=== PATIENT | female | born 2005 | race Two or more races ===

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

== ENCOUNTER 2024-07-11 20:12 | Emergency (ER) | payer OTHER ==
[~2024-07-11] VITALS: Ht 157.5 cm; Wt 77.1 kg
[~2024-07-11 20:12] MED LIST: PRENA1 TRUE CO1 EACH
[2024-07-11] MEDS ORDERED: ACETAMINOPHEN 500 MG GEL..CAP PO ONE (22:30)
[2024-07-11 22:39] LABS: HEMATOCRIT 32.7 % (36.0-45.00); HEMOGLOBIN 10.8 g/dL (12.0-15.00); MEAN CELL VOLUME 86.7 fL (80.00-100.00); MEAN CORPUSCULAR HEMOGLOBIN 28.5 pg (27.00-32.0); MEAN CORPUSCULAR HGB CONC 32.9 g/dl (32.0-36.0); PLATELET COUNT 263 K/uL (150-450); RED BLOOD COUNT 3.77 M/uL (4.00-6.00); RED CELL DISTRIBUTION WIDTH 21.7 % (11.5-14.5)
[2024-07-12] MEDS ORDERED: ACETAMINOPHEN500 M1 PO (01:41)
== END 2024-07-12 03:11 | disposition home or self-care (01) ==
LOC: ER 20:13
PROVIDERS: Preventive Medicine Public Health & General Preventive Medicine
DX: R51.9 Headache, unspecified (principal); Z3A.37 37 weeks gestation of pregnancy

== ENCOUNTER 2024-07-26 06:41 | Inpatient (IN) | payer OTHER ==
[~2024-07-26] VITALS: Ht 157.5 cm; Wt 77.1 kg
[~2024-07-26 06:41] MED LIST changes: +ACETAMINOPHEN500 M1 PO; +IRON18 M1 PO
[2024-07-26 07:36] VITALS: BP 127/753
[2024-07-26] MEDS ORDERED: RINGERS SOLUTION,LACTATED 1,000 ML IV SCH (07:45)
[2024-07-26 07:49] LABS: URINE APPEARANCE Turbid; URINE BILIRRUBIN Negative (NEGATIVE); URINE BLOOD Trace; URINE COLOR Dark Yellow; URINE GLUCOSE Negative (NEGATIVE); URINE KETONE Negative (NEGATIVE); URINE LEUKOCYTE Moderate; URINE NITRATE Negative; URINE PROTEIN 30 (NEGATIVE)
[2024-07-26 07:50] LABS: URINE WBC 2623.2 uL (0.0-23.2)
[2024-07-26 08:17] LABS: INR < 0.93; PARTIAL THROMBOPLASTIN TIME 26.2 SECONDS (22.0-34.0); PROTHROMBIN TIME 9.8 SECONDS (9.0-11.5)
[2024-07-26 08:26] LABS: HEMATOCRIT 34.2 % (36.0-45.00); HEMOGLOBIN 11.3 g/dL (12.0-15.00); MEAN CELL VOLUME 87.5 fL (80.00-100.00); MEAN CORPUSCULAR HGB CONC 33.2 g/dl (32.0-36.0); PLATELET COUNT 287 K/uL (150-450); RED BLOOD COUNT 3.91 M/uL (4.00-6.00); RED CELL DISTRIBUTION WIDTH 20.7 % (11.5-14.5)
[2024-07-26 08:28] LABS: URINE BACTERIA > 9821.5 uL (0.0-1933); URINE CAST 1.17 uL (0.0-1.40); URINE EPITHELIAL CELLS > 201.7 uL (0.0-38.8)
[2024-07-26 08:42] LABS: ALBUMIN 2.8 gm/dL (3.4-5.0); BILIRUBIN TOTAL 0.72 mg/dL (0.3-1.2); CALCIUM 9.3 mg/dL (8.5-10.1); CREATININE SERUM 0.52 mg/dL (0.55-1.02); GFR 151.91; GLOBULINA 3.7 G/DL (2.4-3.5); POTASSIUM 4.07 mEq/L (3.5-5.1); TOTAL PROTEIN 6.5 gm/dL (6.4-8.2)
[2024-07-26] MEDS ORDERED: MISOPROSTOL 25 MCG/4 ML GEL.W.APPL VAG ONE (11:45)
[2024-07-26] MEDS ORDERED: MISOPROSTOL 25 MCG/4 ML GEL.W.APPL ONE (12:18)
[2024-07-26 12:37] VITALS: BP 125/70
[2024-07-26 15:34] VITALS: BP 125/69
[2024-07-26] MEDS ORDERED: AMPICILLIN SODIUM 2,000 MG VIAL ONE (15:48)
[2024-07-26] MEDS ORDERED: AMPICILLIN SODIUM 2,000 MG VIAL IV ONE (16:00)
[2024-07-26 19:19] VITALS: BP 130/69
[2024-07-26] MEDS ORDERED: MORPHINE SULFATE 4 MG/ML CARTRIDGE IV ONE ×2 (19:45→23:45)
[2024-07-26 19:59] VITALS: BP 139/68
[2024-07-26] MEDS ORDERED: AMPICILLIN SODIUM 1,000 MG VIAL IV SCH (20:00)
[2024-07-26 23:31] VITALS: BP 134/77
[2024-07-27] VITALS (8 sets, daily range): BP systolic 105–153; BP diastolic 63–86; O2SAT 99
[2024-07-27] MEDS ORDERED: CHLORHEXIDINE GLUCONATE 120 ML BOTTLE TOP ONE (01:59)
[2024-07-27] MEDS ORDERED: ERYTHROMYCIN BASE OPHT 1GM EACH TUBE OP ONE (01:59)
[2024-07-27] MEDS ORDERED: LIDOCAINE HCL 1% 10ML VIAL ONE (01:59)
[2024-07-27] MEDS ORDERED: OXYTOCIN 20 UNITS/1000ML RL PIGGYBAG IV ONE (01:59)
[2024-07-27] MEDS ORDERED: OXYTOCIN 20 UNITS/500ML RL PIGGYBAG IV ONE (02:46)
[2024-07-27] MEDS ORDERED: OXYTOCIN 500 ML IV SCH (03:30)
[2024-07-27] MEDS ORDERED: IBUprofen 400 MG TABLET PO PRN (04:45)
[2024-07-27] MEDS ORDERED: OXYTOCIN 1,000 ML IV SCH (04:45)
[2024-07-27] MEDS ORDERED: CHLORHEXIDINE GLUCONATE 120 ML BOTTLE TOP SCH (04:45)
[2024-07-28 00:32] VITALS: BP 124/74
[2024-07-28 08:33] VITALS: BP 112/73; O2SAT 100
[2024-07-28 13:16] VITALS: BP 121/80; O2SAT 100
[2024-07-28 16:00] VITALS: BP 109/65
[2024-07-29] VITALS: BP 125/79
[2024-07-29 08:50] VITALS: BP 120/78
[2024-07-29 16:32] VITALS: BP 123/80
== END 2024-07-29 18:19 | disposition home or self-care (01) | DRG 807 ==
LOC: OB/GYN 06:41 → LDR 06:41 → OB/GYN 07-27 05:58
PROVIDERS: ADMIT Obstetrics & Gynecology Obstetrics; ATTEND Obstetrics & Gynecology Obstetrics
PROC: 3E0P7VZ Introduction of Hormone into Female Reproductive, Via Natural or Artificial Opening (ICD-10-PCS; 2024-07-26)
PROC: 4A1HXCZ Monitoring of Products of Conception, Cardiac Rate, External Approach (ICD-10-PCS; 2024-07-26)
PROC: 10E0XZZ Delivery of Products of Conception, External Approach (ICD-10-PCS; principal; 2024-07-27)
PROC: 3E033VJ Introduction of Other Hormone into Peripheral Vein, Percutaneous Approach (ICD-10-PCS; 2024-07-27)
DX: O80 Encounter for full-term uncomplicated delivery (principal); Z37.0 Single live birth; Z3A.39 39 weeks gestation of pregnancy